=== PATIENT | male | born 1975 | race African-American/Black ===

== ENCOUNTER 2025-03-24 12:23 | Emergency (ER) | payer OTHER ==
[~2025-03-24] VITALS: Ht 188 cm; Wt 90.7 kg
[2025-03-24] MEDS ORDERED: LIDOCAINE VISCOUS 2% UD 15 ML UDC ONE (13:07)
[2025-03-24] MEDS ORDERED: FAMOTIDINE (20 MG) 20 MG TABLET ONE (13:07)
[2025-03-24] MEDS ORDERED: MAG HYDROX/AL HYDROX/SIMETH 30 ML UDC ONE (13:07)
[2025-03-24 13:09] LABS: BASOPHILS % (AUTO) 0.7 % (0.0-2.0); EOSINOPHILS # (AUTO) 0.1 K/uL (0.0-0.7); EOSINOPHILS % (AUTO) 2.8 % (0.0-6.0); HEMATOCRIT 41 % (39-51); HEMOGLOBIN 13.4 g/dL (13.5-17.5); LYMPHOCYTES # (AUTO) 0.7 K/uL (0.8-4.8); LYMPHOCYTES % (AUTO) 29.3 % (20.0-44.0); MEAN CORPUSCULAR HEMOGLOBIN 26 PG (26.0-33.0); MEAN CORPUSCULAR HGB CONC 33 g/dl (31.0-36.0); MEAN CORPUSCULAR VOLUME 81 fL (80-96); MONOCYTES # (AUTO) 0.2 K/uL (0.1-1.30); MONOCYTES % (AUTO) 7.8 % (2.0-12.0); NEUTROPHILS # (AUTO) 1.5 K/uL (1.8-8.9); NEUTROPHILS % (AUTO) 59.4 % (43.0-81.0); PLATELET COUNT (AUTO) 172 K/uL (150-450); RED BLOOD CELL COUNT(AUTO) 5.05 MIL/uL (4.5-6.0); RED CELL DISTRIBUTION WIDTH 14.3 % (11.5-15.0); WHITE BLOOD COUNT (AUTO) 2.5 K/uL (4.3-11.0)
[2025-03-24] MEDS: MAG HYDROX/AL HYDROX/SIMETH 30 ML UDC PO ONE (13:14)
[2025-03-24] MEDS: FAMOTIDINE (20 MG) 20 MG TABLET PO ONE (13:14)
[2025-03-24] MEDS: LIDOCAINE VISCOUS 2% UD 15 ML UDC MM ONE (13:14)
[2025-03-24 13:21] LABS: CALCIUM, SERUM 8.8 mg/dL (8.5-10.1); CREATININE 0.9 mg/dL (0.6-1.3); POTASSIUM 4.1 mmol/L (3.5-5.1)
[2025-03-24 13:27] LABS: ALBUMIN 3.4 g/dL (3.4-5.0); BILIRUBIN,DIRECT 0.1 mg/dL (0.0-0.2); BILIRUBIN,TOTAL 0.3 mg/dL (0.2-1.0); TOTAL PROTEIN, SERUM 7.2 g/dL (6.4-8.2)
[2025-03-24] MEDS ORDERED: PANT40TA49 PO (13:49)
[2025-03-24] MEDS ORDERED: CALC300T4 PO (13:49)
[2025-03-24] MEDS ORDERED: PANTOPRAZOLE 40 MG TABLET.DR PO ONE (13:53)
[2025-03-24] MEDS: PANTOPRAZOLE 40 MG TABLET.DR PO ONE (14:00)
[2025-03-24 14:09] VITALS: BP 106/80; TEMP 98.2; O2SAT 95
== END 2025-03-24 14:11 | disposition home or self-care (01) ==
LOC: ER 12:26
DX: R10.13 Epigastric pain (principal); R11.10 Vomiting, unspecified; F19.11 Other psychoactive substance abuse, in remission; Z87.11 Personal history of peptic ulcer disease; Z60.2 Problems related to living alone
CPT/HCPCS: 36415; 80048-TC; 80076-TC; 83690-TC; 85025-TC